=== PATIENT | male | born 1990 | race Hispanic/Latino ===

== ENCOUNTER 2020-09-07 09:56 | Emergency (ER) | payer OTHER | END 2020-09-07 12:28 | disposition home or self-care (01) | LOC: EDH 09:56 | DX: S93.421A Sprain of deltoid ligament of right ankle, initial encounter (principal); W01.0XXA Fall on same level from slipping, tripping and stumbling without subsequent striking against object, initial encounter; Y93.89 Activity, other specified; Y92.89 Other specified places as the place of occurrence of the external cause; Y99.8 Other external cause status | CPT/HCPCS: 73610 ==